=== PATIENT | female | born 1975 | race Caucasian/White ===

== ENCOUNTER 2018-07-02 19:53 | Emergency (ER) | payer SELFPAY ==
[2018-07-02 20:10] VITALS: BMI 21.9
[2018-07-02 20:12] VITALS: BP 114/66; PULSE 73; RESP 20; TEMP 98.3; O2SAT 98
--- NOTE | 2018-07-02 20:47 | C.PDOC ---
History Of Present Illness 42 year old female presents to the ED c/o right shoulder pain for the past 3 days. 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 Patient states she has similar pain in her left shoulder and got an steroid injection for the pain. Patient is now requesting a steroid injection for her pain now. Patient denies fall, trauma, weakness, numbness. Time Seen by Provider: 07/02/18 20:15 Chief Complaint (Nursing): Upper Extremity Problem/Injury History Per: Patient History/Exam Limitations: no limitations Onset/Duration Of Symptoms: Days (3) Current Symptoms Are (Timing): Still Present Quality: "Pain" Exacerbating Factor(s): Movement Recent travel outside of the [place]: No Additional History Per: Patient Past Medical History Reviewed: Historical Data, Nursing Documentation, Vital Signs Vital Signs: Last Vital Signs Temp 98.3 F 07/02/18 20:09 Pulse 73 07/02/18 20:09 Resp 20 07/02/18 20:09 BP 114/66 07/02/18 20:09 Pulse Ox 98 07/02/18 22:47 - Medical History PMH: No Chronic Diseases Surgical History: No Surg Hx Family History: States: Unknown Family Hx - Social History Hx Tobacco Use: No Hx Alcohol Use: No Hx Substance Use: No - Immunization History Hx Tetanus Toxoid Vaccination: No Hx Influenza Vaccination: No Hx Pneumococcal Vaccination: No Review Of Systems Constitutional: Negative for: Fever, Chills Cardiovascular: Negative for: Chest Pain Musculoskeletal: Positive for: Shoulder Pain. Negative for: Arm Pain, Back Pain Skin: Negative for: Rash Neurological: Negative for: Weakness, Numbness Physical Exam - Physical Exam Appears: Non-toxic, No Acute Distress Skin: Normal Color, Warm, Dry Head: Atraumatic, Normacephalic Eye(s): bilateral: Normal Inspection Neck: Normal ROM, Supple Extremity: Normal ROM (but causes pain to right shoulder), No Tenderness, Capillary Refill (< 2 seconds), No Deformity, No Swelling Pulses: Left Radial: Normal, Right Radial: Normal Neurological/Psych: Oriented x3, Normal Speech, Normal Motor, Normal Sensation Gait: Steady ED Course And Treatment O2 Sat by Pulse Oximetry: 98 (ON RA) Pulse Ox Interpretation: Normal Progress Note: Plan: - Flexeril 10 mg PO. - Toradol 30 mg IM. On reassessment , patient is resting comfortably, and is in no acute distress. Patient was instructed to follow up with physician/clinic in 1-2 days for further evaluation. Disposition Counseled Patient/Family Regarding: Diagnosis, Need For Followup, Rx Given - Disposition Referrals: [facility] [Outside] Disposition: HOME/ ROUTINE Disposition Time: 20:44 Condition: STABLE Additional Instructions: Follow up with PMD orthopedist Return to ER if worse Prescriptions: Naproxen [Naprosyn] 1 tab PO BID PRN #20 tab PRN Reason: Pain Instructions: Shoulder Tendinopathy (DC) Forms: Ring[employer] (Welsh) - Clinical Impression Clinical Impression: Shoulder tendinitis - PA / ON SITE SERVICES SPECIALIST / Resident Statement MD/DO has reviewed & agrees with the documentation as recorded. - Scribe Statement The provider has reviewed the documentation as recorded by the Scribe Orlando Charles All medical record entries made by the Scribe were at my direction and personally dictated by me. I have reviewed the chart and agree that the record accurately reflects my personal performance of the history, physical exam, medical decision making, and the department course for this patient. I have also personally directed, reviewed, and agree with the discharge instructions and disposition.
== END 2018-07-02 21:05 | disposition home or self-care (01) ==
LOC: C.ER 19:53
DX: M75.91 Shoulder lesion, unspecified, right shoulder (principal)
CPT/HCPCS: 96372; 99284; J1885